=== PATIENT | male | born 1965 | race African-American/Black ===

== ENCOUNTER → 2016-10-16 | Outpatient (CLI) | payer OTHER ==
--- NOTE | 2016-10-18 09:32 | MR ---
EXAMINATION: MRV of the brain HISTORY: Benign intracranial hypertension COMPARISON: MRI dated 07/12/2016 TECHNIQUE: Multiplanar and multisequence images obtained of the brain with 3-D MIP reconstructions. FINDINGS: The sagittal sinus appears normal. There is narrowing of the transverse sinuses bilaterall y without a definite filling defect to suggest a venous sinus thrombus. The jugular veins appear nor mal. The straight sinus is patent. Internal cerebral vein normal. The inferior sagittal sinuses aslhey nt however diminutive. The cortical veins appear normal. There is no mass, mass effect, or midline s hift. Ventricles and sulci appear symmetric. Orbits and globes are symmetric. Craniocervical junctio n is normal. IMPRESSION: 1. Grossly unremarkable MRV.
== END ==
LOC: MW.MRI 10:07
PROVIDERS: ATTEND Psychiatry & Neurology Neuromuscular Medicine
DX: G93.2 Benign intracranial hypertension (principal)
CPT/HCPCS: 70545; 70545-26

== ENCOUNTER → 2016-11-08 | Outpatient (CLI) | payer OTHER ==
[2016-11-08 13:59] LABS: CHLORIDE,CL 113 mmol/L (98-110); SODIUM,NA 137 mmol/L (136-146)
== END ==
LOC: MW.CHNEURO 13:22
PROVIDERS: ATTEND Psychiatry & Neurology Neuromuscular Medicine
DX: G93.2 Benign intracranial hypertension (principal)
CPT/HCPCS: 36415; 80053; 85025

== ENCOUNTER → 2016-12-12 | Outpatient (CLI) | payer OTHER ==
[2016-12-12 12:45] LABS: CHLORIDE,CL 113 mmol/L (98-110); SODIUM,NA 141 mmol/L (136-146)
== END ==
LOC: MW.CHNEURO 11:58
PROVIDERS: ATTEND Psychiatry & Neurology Neuromuscular Medicine
DX: G93.2 Benign intracranial hypertension (principal)
CPT/HCPCS: 36415; 80048